=== PATIENT | male | born 1980 | race American Indian/Alaskan Native ===

== ENCOUNTER 2019-08-30 08:17 | Emergency (ER) | payer OTHER ==
[2019-08-30 08:38] VITALS: BP 149/100
[2019-08-30 09:51] LABS: Alanine Aminotransferase 48 units/L (7-56); Albumin 4.4 g/dL (3.9-5); BUN/Creatinine Ratio 22; Blood Urea Nitrogen 20 mg/dL (9-20); Calcium 9.3 mg/dL (8.4-10.2); Hemolysis Index 14
[2019-08-30 10:13] LABS: Bacteria,Urine 1+ /HPF (Negative); Bilirubin,Urine NEG (Negative); Blood,Urine NEG (Negative); Color,Urine Yellow (Yellow); Mucus,Urine FEW /HPF; Sperm,Urine 1+ /HPF (NP)
[2019-08-30 10:28] LABS: Benzodiazepines Screen,Urine PRESUMPTIVE NEGATIVE; Cannabinoid Screen,Urine PRESUMPTIVE NEGATIVE; Methadone Screen,Urine PRESUMPTIVE NEGATIVE; Opiate Screen,Urine PRESUMPTIVE NEGATIVE
[2019-08-30 10:43] LABS: Amphetamine Screen,Urine PRESUMPTIVE POSITIVE; Cocaine Screen,Urine PRESUMPTIVE POSITIVE
== END 2019-08-30 10:00 | disposition left against medical advice (07) ==
LOC: ED 08:17
DX: F29 Unspecified psychosis not due to a substance or known physiological condition (principal); Z53.21 Procedure and treatment not carried out due to patient leaving prior to being seen by health care provider
CPT/HCPCS: 36415; 80053; 80307; 80320; 81001; G0480

== ENCOUNTER 2019-08-31 00:02 | Emergency (ER) | payer OTHER ==
[2019-08-31 00:42] LABS: Bacteria,Urine 2+ /HPF (Negative); Bilirubin,Urine NEG (Negative); Blood,Urine NEG (Negative); Color,Urine Yellow (Yellow); Protein,Urine <15 mg/dL mg/dL (Negative); Sperm,Urine FEW /HPF (NP)
[2019-08-31 00:50] LABS: Benzodiazepines Screen,Urine PRESUMPTIVE NEGATIVE; Cannabinoid Screen,Urine PRESUMPTIVE NEGATIVE; Methadone Screen,Urine PRESUMPTIVE NEGATIVE; Opiate Screen,Urine PRESUMPTIVE NEGATIVE
--- NOTE | 2019-08-31 00:53 | Emergency Department Report ---
<AYSE DILLARD - Last Filed: 08/31/19 02:01> ED Psych HPI - General Chief Complaint: Psych Stated Complaint: SI/MH Time Seen by Provider: 08/31/19 00:49 Source: patient Mode of arrival: Ambulatory - History of Present Illness Initial Comments: Patient is a 39-year-old -[place] male who was found wandering in traffic this evening. Patient was near [facility] and paramedics were called. Patient states he has been feeling suicidal. He states the reason he hasn't killed himself tonight or yesterday is because of his children. Patient admits to cocaine and alcohol use. He denies auditory or visual hallucinations at this time. MD Complaint: suicidal ideation, feels depressed Context: recent alcohol abuse, recent drug abuse Associated Symptoms: denies other symptoms Treatments Prior to Arrival: placed on mental he - Related Data Home Medications Medication Instructions Recorded Confirmed Last Taken Acetaminophen [Tylenol] 650 mg PO Q6HR PRN 04/06/13 04/06/13 04/05/13 Buprenorphine HCl/Naloxone HCl 4 mg SL BID 04/06/13 04/06/13 04/05/13 [Suboxone 4 mg-1 mg SL Film] Citalopram Hydrobromide [Celexa] 40 mg PO DAILY 04/06/13 04/06/13 04/05/[address] [Depakote] 250 mg PO QAM 04/06/13 04/06/13 04/05/[address] [Depakote] 500 mg PO QHS 04/06/13 04/06/13 04/05/13 Hydroxyzine HCl [hydrOXYzine] 50 mg PO 04/06/13 04/06/13 04/05/13 Ibuprofen [Motrin] 400 mg PO TID PRN 04/06/13 04/06/13 04/05/13 Lidocaine 5% Patch [Lidoderm 5%] 1 each TP QDAY 04/06/13 04/06/13 04/05/13 Loperamide [Imodium] 2 mg PO PRN PRN 04/06/13 04/06/13 04/05/13 Loratadine [Claritin RAPDIS] 10 mg PO QDAY 04/06/13 04/06/13 04/05/13 Mag Hydrox/Al Hydrox/Simeth 355 ml PO 04/06/13 04/06/13 04/05/13 [Mylanta Double-Strength Liq] Meloxicam [Mobic] 7.5 mg PO BID 04/06/13 04/06/13 04/05/13 Multivitamin [Multi Vitamin Daily] 1 each PO DAILY 04/06/13 04/06/13 04/05/13 cloNIDine [Catapres] 0.1 mg PO BID 04/06/13 04/06/13 04/05/13 diphenhydrAMINE [Benadryl] 50 mg PO QHS 04/06/13 04/06/13 04/05/13 traZODone [Desyrel] 100 mg PO QHS 04/06/13 04/06/13 04/05/13 Allergies Allergy/AdvReac Type Severity Reaction Status Date / Time No Known Allergies Allergy Unverified 04/06/13 10:09 ED Review of Systems Comment: All other systems reviewed and negative ED Past Medical Hx - Past Medical History Previous Medical History?: Yes Hx Psychiatric Treatment: Yes (PTSD; Schizophrenia; Bipolar II; Depression) Additional medical history: substance abuse - Surgical History Past Surgical History?: No - Social History Smoking Status: Current Every Day Smoker Substance Use Type: Alcohol, Cocaine, Marijuana - Medications Home Medications: Home Medications Medication Instructions Recorded Confirmed Last Taken Type Acetaminophen [Tylenol] 650 mg PO Q6HR PRN 04/06/13 04/06/13 04/05/13 History Buprenorphine HCl/Naloxone HCl 4 mg SL BID 04/06/13 04/06/13 04/05/13 History [Suboxone 4 mg-1 mg SL Film] Citalopram Hydrobromide [Celexa] 40 mg PO DAILY 04/06/13 04/06/13 04/05/[address] [Depakote] 250 mg PO QAM 04/06/13 04/06/13 04/05/[address] [Depakote] 500 mg PO QHS 04/06/13 04/06/13 04/05/13 History Hydroxyzine HCl [hydrOXYzine] 50 mg PO 04/06/13 04/06/13 04/05/13 History Ibuprofen [Motrin] 400 mg PO TID PRN 04/06/13 04/06/13 04/05/13 History Lidocaine 5% Patch [Lidoderm 5%] 1 each TP QDAY 04/06/13 04/06/13 04/05/13 History Loperamide [Imodium] 2 mg PO PRN PRN 04/06/13 04/06/13 04/05/13 History Loratadine [Claritin RAPDIS] 10 mg PO QDAY 04/06/13 04/06/13 04/05/13 History Mag Hydrox/Al Hydrox/Simeth 355 ml PO 04/06/13 04/06/13 04/05/13 History [Mylanta Double-Strength Liq] Meloxicam [Mobic] 7.5 mg PO BID 04/06/13 04/06/13 04/05/13 History Multivitamin [Multi Vitamin Daily] 1 each PO DAILY 04/06/13 04/06/13 04/05/13 History cloNIDine [Catapres] 0.1 mg PO BID 04/06/13 04/06/13 04/05/13 History diphenhydrAMINE [Benadryl] 50 mg PO QHS 04/06/13 04/06/13 04/05/13 History traZODone [Desyrel] 100 mg PO QHS 04/06/13 04/06/13 04/05/13 History ED Physical Exam - General Limitations: No Limitations General appearance: alert, in no apparent distress - Head Head exam: Present: atraumatic, normocephalic - Eye Eye exam: Present: normal appearance - ENT ENT exam: Present: mucous membranes moist - Neck Neck exam: Present: normal inspection - Respiratory Respiratory exam: Present: normal lung sounds bilaterally. Absent: respiratory distress, wheezes, rales - Cardiovascular Cardiovascular Exam: Present: regular rate, normal rhythm, normal heart sounds. Absent: systolic murmur, diastolic murmur, rubs, gallop - GI/Abdominal GI/Abdominal exam: Present: soft, normal bowel sounds. Absent: distended, tenderness, guarding, rebound - Rectal Rectal exam: Present: deferred - Extremities Exam Extremities exam: Present: normal inspection - Back Exam Back exam: Present: normal inspection - Neurological Exam Neurological exam: Present: alert, oriented X3 - Psychiatric Psychiatric exam: Present: normal affect, depressed - Skin Skin exam: Present: warm, dry, intact, normal color. Absent: rash ED Course - Reevaluation(s) Reevaluation #1: 08/31/19 02:02 Patient is medically cleared at this time for psychiatric evaluation ED Medical Decision Making - Lab Data Result diagrams: 08/31/19 00:38 08/31/19 00:38 Lab Results 08/31/19 08/31/19 08/31/19 Range/Units 00:13 00:13 00:38 WBC (4.5-11.0) K/mm3 RBC (3.65-5.03) M/mm3 Hgb (11.8-15.2) gm/dl Hct (35.5-45.6) % MCV (84-94) fl MCH (28-32) pg MCHC (32-34) % RDW (13.2-15.2) % Plt Count (140-440) K/mm3 Lymph % (Auto) (13.4-35.0) % [place] % (Auto) (0.0-7.3) % Eos % (Auto) (0.0-4.3) % Baso % (Auto) (0.0-1.8) % Lymph # (1.2-5.4) K/mm3 [place] # (0.0-0.8) K/mm3 Eos # (0.0-0.4) K/mm3 Baso # (0.0-0.1) K/mm3 Seg Neutrophils % (40.0-70.0) % Seg Neutrophils # (1.8-7.7) K/mm3 Sodium (137-145) mmol/L Potassium (3.6-5.0) mmol/L Chloride (98-107) mmol/L Carbon Dioxide (22-30) mmol/L Anion Gap mmol/L BUN (9-20) mg/dL Creatinine (0.8-1.5) mg/dL Estimated GFR ml/min BUN/Creatinine Ratio % Glucose (75-100) mg/dL Calcium (8.4-10.2) mg/dL Urine Color Yellow (Yellow) Urine Turbidity Slightly-cloudy (Clear) Urine pH 7.0 (5.0-7.0) Ur Specific [place] 1.023 (1.003-1.030) Urine Protein <15 mg/dl (Negative) mg/dL Urine Glucose (UA) Neg (Negative) mg/dL Urine Ketones Neg (Negative) mg/dL Urine Blood Neg (Negative) Urine Nitrite Neg (Negative) Urine Bilirubin Neg (Negative) Urine Urobilinogen 4.0 (<2.0) mg/dL Ur Leukocyte Esterase Neg (Negative) Urine WBC (Auto) 2.0 (0.0-6.0) /HPF Urine RBC (Auto) 1.0 (0.0-6.0) /HPF U Epithel Cells (Auto) < 1.0 (0-13.0) /HPF Urine Bacteria (Auto) 2+ (Negative) /HPF Urine Yeast (Budding) 1+ /HPF Urine Sperm Few (MOLD YARD WORKER) /HPF Salicylates < 0.3 L (2.8-20.0) mg/dL Urine Opiates Screen Presumptive negative Urine Methadone Screen Presumptive negative Acetaminophen (10.0-30.0) ug/mL Ur Barbiturates Screen Presumptive negative Ur Phencyclidine Scrn Presumptive negative Ur Amphetamines Screen Presumptive positive U Benzodiazepines Scrn Presumptive negative Urine Cocaine Screen Presumptive positive U Marijuana (THC) Screen Presumptive negative Drugs of Abuse Note Disclamer Plasma/Serum Alcohol (0-0.07) % 08/31/19 08/31/19 08/31/19 Range/Units 00:38 00:38 00:38 WBC (4.5-11.0) K/mm3 RBC (3.65-5.03) M/mm3 Hgb (11.8-15.2) gm/dl Hct (35.5-45.6) % MCV (84-94) fl MCH (28-32) pg MCHC (32-34) % RDW (13.2-15.2) % Plt Count (140-440) K/mm3 Lymph % (Auto) (13.4-35.0) % [place] % (Auto) (0.0-7.3) % Eos % (Auto) (0.0-4.3) % Baso % (Auto) (0.0-1.8) % Lymph # (1.2-5.4) K/mm3 [place] # (0.0-0.8) K/mm3 Eos # (0.0-0.4) K/mm3 Baso # (0.0-0.1) K/mm3 Seg Neutrophils % (40.0-70.0) % Seg Neutrophils # (1.8-7.7) K/mm3 Sodium 140 (137-145) mmol/L Potassium 4.0 (3.6-5.0) mmol/L Chloride 100.8 (98-107) mmol/L Carbon Dioxide 25 (22-30) mmol/L Anion Gap 18 mmol/L BUN 14 (9-20) mg/dL Creatinine 0.8 (0.8-1.5) mg/dL Estimated GFR > 60 ml/min BUN/Creatinine Ratio 18 % Glucose 80 (75-100) mg/dL Calcium 9.4 (8.4-10.2) mg/dL Urine Color (Yellow) Urine Turbidity (Clear) Urine pH (5.0-7.0) Ur Specific [place] (1.003-1.030) Urine Protein (Negative) mg/dL Urine Glucose (UA) (Negative) mg/dL Urine Ketones (Negative) mg/dL Urine Blood (Negative) Urine Nitrite (Negative) Urine Bilirubin (Negative) Urine Urobilinogen (<2.0) mg/dL Ur Leukocyte Esterase (Negative) Urine WBC (Auto) (0.0-6.0) /HPF Urine RBC (Auto) (0.0-6.0) /HPF U Epithel Cells (Auto) (0-13.0) /HPF Urine Bacteria (Auto) (Negative) /HPF Urine Yeast (Budding) /HPF Urine Sperm (MOLD YARD WORKER) /HPF Salicylates (2.8-20.0) mg/dL Urine Opiates Screen Urine Methadone Screen Acetaminophen < 5.0 L (10.0-30.0) ug/mL Ur Barbiturates Screen Ur Phencyclidine Scrn Ur Amphetamines Screen U Benzodiazepines Scrn Urine Cocaine Screen U Marijuana (THC) Screen Drugs of Abuse Note Plasma/Serum Alcohol < 0.01 (0-0.07) % 08/31/19 Range/Units 00:38 WBC 7.6 (4.5-11.0) K/mm3 RBC 4.85 (3.65-5.03) M/mm3 Hgb 12.9 (11.8-15.2) gm/dl Hct 40.1 (35.5-45.6) % MCV 83 L (84-94) fl MCH 27 L (28-32) pg MCHC 32 (32-34) % RDW 15.1 (13.2-15.2) % Plt Count 166 (140-440) K/mm3 Lymph % (Auto) 14.9 (13.4-35.0) % [place] % (Auto) 9.5 H (0.0-7.3) % Eos % (Auto) 1.0 (0.0-4.3) % Baso % (Auto) 0.4 (0.0-1.8) % Lymph # 1.1 L (1.2-5.4) K/mm3 [place] # 0.7 (0.0-0.8) K/mm3 Eos # 0.1 (0.0-0.4) K/mm3 Baso # 0.0 (0.0-0.1) K/mm3 Seg Neutrophils % 74.2 H (40.0-70.0) % Seg Neutrophils # 5.7 (1.8-7.7) K/mm3 Sodium (137-145) mmol/L Potassium (3.6-5.0) mmol/L Chloride (98-107) mmol/L Carbon Dioxide (22-30) mmol/L Anion Gap mmol/L BUN (9-20) mg/dL Creatinine (0.8-1.5) mg/dL Estimated GFR ml/min BUN/Creatinine Ratio % Glucose (75-100) mg/dL Calcium (8.4-10.2) mg/dL Urine Color (Yellow) Urine Turbidity (Clear) Urine pH (5.0-7.0) Ur Specific [place] (1.003-1.030) Urine Protein (Negative) mg/dL Urine Glucose (UA) (Negative) mg/dL Urine Ketones (Negative) mg/dL Urine Blood (Negative) Urine Nitrite (Negative) Urine Bilirubin (Negative) Urine Urobilinogen (<2.0) mg/dL Ur Leukocyte Esterase (Negative) Urine WBC (Auto) (0.0-6.0) /HPF Urine RBC (Auto) (0.0-6.0) /HPF U Epithel Cells (Auto) (0-13.0) /HPF Urine Bacteria (Auto) (Negative) /HPF Urine Yeast (Budding) /HPF Urine Sperm (MOLD YARD WORKER) /HPF Salicylates (2.8-20.0) mg/dL Urine Opiates Screen Urine Methadone Screen Acetaminophen (10.0-30.0) ug/mL Ur Barbiturates Screen Ur Phencyclidine Scrn Ur Amphetamines Screen U Benzodiazepines Scrn Urine Cocaine Screen U Marijuana (THC) Screen Drugs of Abuse Note Plasma/Serum Alcohol (0-0.07) % ED Disposition Clinical Impression: Cocaine abuse, Amphetamine abuse, PTSD (post-traumatic stress disorder) Disposition: DC-01 TO HOME OR SELFCARE Is pt being admited?: No Does the pt Need Aspirin: No Condition: Stable Instructions: Polysubstance Abuse (ED) Referrals: PRIMARY CARE, [Primary Care Provider] - 3-5 Days [facility] [Outside] - 3-5 Days <SARAH KOWALSKI - Last Filed: 08/31/19 13:58> ED Review of Systems ROS: Stated complaint: SI/MH Other details as noted in HPI ED Course Vital Signs 08/31/19 08/31/19 08/31/19 00:04 01:43 08:26 Temperature 97.4 F L 97.6 F 97.7 F Pulse Rate 83 88 73 Respiratory 16 16 18 Rate Blood Pressure 141/91 142/90 130/82 [Right] O2 Sat by Pulse 99 97 100 Oximetry 08/31/19 08:28 Temperature 97.7 F Pulse Rate 73 Respiratory 18 Rate Blood Pressure 130/82 [Right] O2 Sat by Pulse 100 Oximetry ED Medical Decision Making - Lab Data Result diagrams: 08/31/19 00:38 08/31/19 00:38 - Medical Decision Making 39 yo M, hx PTSD, underwent mental health evaluation. Pt brought in by EMS last night reporting suicidal ideations. Pt states this was because he had tried multiple times but was unable to get a taxi and it was cold outside, so he decided to come to the hospital, basically for alf. UDS positive for cocaine and amphetamines. Pt denies SI, HI, hallucinations. He is calm and cooperative. Pt has been seen and evaluated by mental health multi skilled operator. Does not meet inpatient criteria. Outpt resources given. [facility]. Critical care attestation.: If time is entered above; I have spent that time in minutes in the direct care of this critically ill patient, excluding procedure time. ED Disposition Is pt being admited?: No Time of Disposition: 13:57
[2019-08-31 00:56] LABS: Basophils % (Auto) 0.4 % (0.0-1.8); Eosinophils # (Auto) 0.1 K/mm3 (0.0-0.4); Hematocrit 40.1 % (35.5-45.6); Hemoglobin 12.9 gm/dl (11.8-15.2); Lymphocytes # (Auto) 1.1 K/mm3 (1.2-5.4); Lymphocytes % (Auto) 14.9 % (13.4-35.0); Mean Corpuscular HGB Conc 32 % (32-34); Mean Corpuscular Volume 83 fl (84-94); Monocytes # (Auto) 0.7 K/mm3 (0.0-0.8); Monocytes % (Auto) 9.5 % (0.0-7.3); Platelet Count 166 K/mm3 (140-440); Red Blood Count 4.85 M/mm3 (3.65-5.03); Red Cell Distribution Width 15.1 % (13.2-15.2)
[2019-08-31 01:09] LABS: Amphetamine Screen,Urine PRESUMPTIVE POSITIVE; Cocaine Screen,Urine PRESUMPTIVE POSITIVE
[2019-08-31 01:39] LABS: BUN/Creatinine Ratio 18; Blood Urea Nitrogen 14 mg/dL (9-20); Calcium 9.4 mg/dL (8.4-10.2); Hemolysis Index 2
[2019-08-31 14:11] VITALS: BP 117/72
== END 2019-08-31 14:45 | disposition home or self-care (01) ==
LOC: ED 00:02
DX: F43.10 Post-traumatic stress disorder, unspecified (principal); F15.10 Other stimulant abuse, uncomplicated; F14.10 Cocaine abuse, uncomplicated; F20.89 Other schizophrenia; F31.89 Other bipolar disorder; F17.200 Nicotine dependence, unspecified, uncomplicated; F12.10 Cannabis abuse, uncomplicated; Z79.899 Other long term (current) drug therapy; X58.XXXA Exposure to other specified factors, initial encounter; Y93.89 Activity, other specified; Y92.89 Other specified places as the place of occurrence of the external cause; Y99.8 Other external cause status
CPT/HCPCS: 36415; 80048; 80307; 80320; 81001; 85025; G0480